=== PATIENT | female | born 1990 | race Caucasian/White ===

== ENCOUNTER 2016-07-14 20:51 | Emergency (ER) | payer MEDICAID ==
[~2016-07-14] VITALS: Ht 157.5 cm; Wt 86.4 kg
[2016-07-14] MEDS ORDERED: ONDANSETRON 2MG/ML, 2ML ONE (21:44)
[2016-07-14] MEDS ORDERED: MAALOX/HYOSCYAMINE/LIDOCAINE 45 ML BOTTLE ONE (21:44)
[2016-07-14 21:46] LABS: HEMOGLOBIN 14.8 g/dL (11.7-16.4)
[2016-07-14 21:58] LABS: ASPARTATE AMINO TRANSFERASE 11 U/L (15-37); BLOOD UREA NITROGEN 15 mg/dL (7-18)
[2016-07-14] MEDS ORDERED: SODIUM CHLORIDE FLUSH 10ML SYR IVF ONE (22:00)
[2016-07-14] MEDS ORDERED: MAALOX/HYOSCYAMINE/LIDOCAINE 45 ML BOTTLE PO ONE (22:00)
[2016-07-14] MEDS ORDERED: SODIUM CHLORIDE 0.9% 1,000ML IVBOLUS ONE (22:00)
[2016-07-14] MEDS ORDERED: ONDANSETRON 2MG/ML, 2ML IVPush ONE (22:00)
[2016-07-14 22:43] VITALS: BP 102/60
== END 2016-07-14 22:46 | disposition home or self-care (01) ==
LOC: ED 22:30
DX: R10.13 Epigastric pain (principal); R11.2 Nausea with vomiting, unspecified; R51 Headache; F41.1 Generalized anxiety disorder; F17.200 Nicotine dependence, unspecified, uncomplicated; Z98.51 Tubal ligation status
CPT/HCPCS: 36415; 76700; 80053; 83690; 84703; 85025; 96361; 96374; 99285; J2405; J7030

== ENCOUNTER 2017-11-26 12:19 | Emergency (ER) | payer SELFPAY ==
[~2017-11-26] VITALS: Ht 157.5 cm; Wt 94.3 kg
[2017-11-26 13:30] VITALS: BP 100/56
[2017-11-26] MEDS ORDERED: HYDROcodone/APAP 5/325 TABLET ONE (14:20)
[2017-11-26] MEDS ORDERED: HYDROcodone/APAP 5/325 TABLET PO ONE (14:30)
== END 2017-11-26 14:55 | disposition home or self-care (01) ==
LOC: ED 14:51
DX: R51 Headache (principal); F17.200 Nicotine dependence, unspecified, uncomplicated
CPT/HCPCS: 99283